=== PATIENT | female | born 1945 ===

== ENCOUNTER 2021-04-17 06:00 | Day surgery (SDC) | payer OTHER | END 2021-04-17 10:05 | disposition home or self-care (01) | LOC: AMB-ENDOS 06:00 | PROVIDERS: ATTEND Surgery | DX: D12.3 Benign neoplasm of transverse colon (principal); K44.9 Diaphragmatic hernia without obstruction or gangrene; Z20.822 Contact with and (suspected) exposure to COVID-19 ==

== ENCOUNTER 2021-08-06 06:58 | Day surgery (SDC) | payer OTHER ==
[~2021-08-06] VITALS: Ht 160 cm; Wt 63.0 kg
[~2021-08-06 06:58] MED LIST: ADULT LOW DOSE81 M1 PO; PRAVASTATIN SOD20 MG PO; VERELAN180 MG PO; ZETIA10 MG PO
[2021-08-06] MEDS ORDERED: INDAPAMIDE2.5 MG (11:13)
[2021-08-06] MEDS ORDERED: ALPRAZOLAM0.5 MG (11:13)
[2021-08-07] MEDS ORDERED: KETO10TA2 PO (14:34)
[2021-08-07] MEDS ORDERED: NEURONTIN300 MG PO (14:34)
== END 2021-08-07 17:57 | disposition home or self-care (01) ==
LOC: CIR.AMB 06:58 → SURH 06:58 → O/R 06:58 → SURH 11:00 → EDSTATUS 11:00 → O/R 11:15 → SURH 11:15 → CIR.AMB 08-07 17:57
PROVIDERS: ATTEND Surgery
DX: N81.6 Rectocele (principal); K64.8 Other hemorrhoids